=== PATIENT | female | born 1960 | race Caucasian/White ===

== ENCOUNTER → 2016-05-17 | Outpatient (CLI) | payer BC ==
[~2016-05-17] MED LIST: ACET-1256 PO; B-COCAP2 PO; BND25 PO; CMD5 PO; CYCL-259 PO; EPP3 IM; IBUP-103 PO; MULT-506 PO; MXRAIN INH; OXYC-81 PO; OXYIR PO; PRED50TA PO; TRAM-10 PO
== END | disposition home or self-care (01) ==
LOC: C.PAPS 13:49
PROVIDERS: ATTEND Obstetrics & Gynecology
DX: Z01.419 Encounter for gynecological examination (general) (routine) without abnormal findings (principal); R87.610 Atypical squamous cells of undetermined significance on cytologic smear of cervix (ASC-US)

== ENCOUNTER → 2016-11-23 | Outpatient (CLI) | payer BC ==
--- NOTE | 2016-11-23 14:13 | MAMMOGRAPHY REPORT ---
BILATERAL DIGITAL SCREENING MAMMOGRAM TOMOSYNTHESIS WITH CAD: 11/23/2016 CLINICAL HISTORY: Routine screening. TECHNIQUE: Breast tomosynthesis in addition to standard 2D mammography was performed. Current study was also evaluated with a Computer Aided Detection (CAD) system. COMPARISON: Comparison is made to exams dated: 09/28/2015 mammogram, 07/13/2014 mammogram, 05/07/2012 ma mmogram, 01/30/2011 mammogram - [facility], 05/28/2008, and 06/24/2006. BREAST COMPOSITION: There are scattered areas of fibroglandular density in both breasts. FINDINGS: No suspicious masses, calcifications, or areas of architectural distortion are noted in ei ther breast. There has been no significant interval change compared to prior exams. Left breast nodu larity is stable compared to prior exams. IMPRESSION: ACR BI-RADS CATEGORY 2: BENIGN There is no mammographic evidence of malignancy. A 1 year screening mammogram is recommended. The pa tient will receive written notification of the results. Approximately 10% of breast cancers are not detected with mammography. A negative mammographic report should not delay biopsy if a clinically suggestive mass is present. Jcakie Anne M.D. ah/:11/23/2016 12:34:21 Center Lead Consultant: Jamison VEGAS(R)(M), [facility] letter sent: Normal 1/2 BI-RADS Code: ACR BI-RADS Category 2: Benign
== END | disposition home or self-care (01) ==
LOC: C.MAMM 10:16
PROVIDERS: ATTEND Obstetrics & Gynecology
DX: Z12.31 Encounter for screening mammogram for malignant neoplasm of breast (principal)

== ENCOUNTER → 2017-03-25 | Outpatient (CLI) | payer OTHER | END | disposition home or self-care (01) | LOC: C.LABSPEC 17:58 | PROVIDERS: ATTEND Obstetrics & Gynecology | DX: N76.0 Acute vaginitis (principal) ==

== ENCOUNTER → 2017-04-01 | Outpatient (CLI) | payer OTHER | END | disposition home or self-care (01) | LOC: C.PAPS 16:16 | PROVIDERS: ATTEND Obstetrics & Gynecology | DX: Z12.4 Encounter for screening for malignant neoplasm of cervix (principal) ==

== ENCOUNTER 2022-11-26 07:45 | Observation (INO) ==
--- NOTE | 2022-10-30 15:44 | PAT Medication Instructions ---
Medication Instructions Date of Service October 30, 2022 Home Medications Medication Instructions Recorded mupirocin 2 % topical ointment 1 applic topical TID #22 grams 07/20/21 triamcinolone acetonide 0.1 % 1 applic topical DAILY #30 grams 07/20/21 topical cream apixaban 5 mg tablet (Eliquis) 5 mg PO BID mupirocin 2 % topical ointment 1 applic topical TID triamcinolone acetonide 0.1 % topical cream 1 applic topical DAILY albuterol sulfate 2.5 mg/3 mL (0.083 %) solution for nebulization 2.5 mg inhalation QID PRN albuterol sulfate 90 mcg/actuation aerosol inhaler 2 puff inhalation QID PRN multivitamin 1 tab PO QAM pseudoephedrine HCl 30 mg tablet (Sudafed) 5 mg PO HS PRN ASK your prescriber and surgeon apixaban 5 mg tablet (Eliquis) 5 mg PO BID(in order for spinal or epidural anesthesia, Eliquis needs to be stopped 72 hours/3 days before surgery. Please check if okay with doctor that prescribes this to you) STOP taking 24 hours before surgery mupirocin 2 % topical ointment 1 applic topical TID triamcinolone acetonide 0.1 % topical cream 1 applic topical DAILY DO NOT take the morning of surgery multivitamin 1 tab PO QAM Take morning of surgery With a small sip of water, OTHERWISE NOTHING TO EAT OR DRINK AFTER MIDNIGHT: albuterol sulfate 2.5 mg/3 mL (0.083 %) solution for nebulization 2.5 mg inhalation QID PRN(if needed) albuterol sulfate 90 mcg/actuation aerosol inhaler 2 puff inhalation QID PRN(if needed) Take evening before surgery albuterol sulfate 2.5 mg/3 mL (0.083 %) solution for nebulization 2.5 mg inhalation QID PRN(if needed) albuterol sulfate 90 mcg/actuation aerosol inhaler 2 puff inhalation QID PRN(if needed) pseudoephedrine HCl 30 mg tablet (Sudafed) 5 mg PO HS PRN(if needed) Other Notes If you have any questions please call us at [phone] or [phone] or [phone] or [phone]
--- NOTE | 2022-11-01 14:44 | Anesthesiology Consultation ---
Date of Service November 01, 2022 Assessment & Plan (1) Encounter for pre-operative examination: - Infectious disease screening: Per assessment on 11/01: No known infectious disease contacts or current infectious disease symptoms. No noted Covid positive test result in past 90 days. - Outpatient joint assessment: Pt currently scheduled for inpatient pathway. If surgeon requests review for outpatient joint pathway, patient is not recommended candidate for outpatient joint program from anesthesia standpoint. - Eliquis instructions: patient made aware that in order for spinal anesthesia, Eliquis needs to be held 72 hours prior to surgery. Patient voiced understanding/will check if okay with prescriber. - Neuraxial anesthesia concern: Per patient, epidural used during 1999 c/s without issue. Subsequently had D&C for miscarriage where she states she was told that she had "epidural scarring" - Patient had upcoming routine cardiology followup visit scheduled a few weeks after surgery. In light of upcoming orthopedic surgery, patient asked cardiology if she could be seen for a one year followup/preop evaluation prior to surgery. Awaiting cardiology preop evaluation appt ([facility], appt 11/13). Chart Review Chart Review: Patient seen in Pre Admission Testing Teaching & Discussion Pre-Anesthesia Teaching/Discussion Notes: Instructed NPO after midnight before surgery,except medications with 15 cc of water. Medication instructions provided according to the PAT guidelines. History Surgery Operation Date: 11/26/22 07:00 Proposed Procedures p Right Total Knee Arthroplasty - Edmund Dunne, Height/Weight Height: 5 ft 5 in Weight: 120.1 kg Allergies Allergy/AdvReac Type Severity Reaction Status Date / Time Cephalosporins Allergy Intermediate Hives Verified 10/31/22 10:36 Penicillins Allergy Unknown "Family hx Verified 10/31/22 10:36 of allergy" Sutures Allergy Unknown Rejection Verified 10/31/22 10:36 of surgical sutures gabapentin Allergy Wheezing Verified 11/01/22 14:55 doxycycline AdvReac Unknown Diarrhea Verified 10/31/22 10:36 tetracycline AdvReac Unknown Diarrhea Verified 10/31/22 10:36 levofloxacin AdvReac Diarrhea Verified 11/01/22 15:42 Horse fly bites Allergy Hives, Uncoded 11/01/22 15:39 dyspnea Additional Notes: *Hx of sutures rejection/complications (Moh's procedure 2012/[facility] > Monocryl, 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 Patient states she did not have issue with sutures used for 1999/[facility]- [facility]/Vicryl) - Melodie at surgeon's office made aware of significant/complicated sutures reaction history* Medications Home Medications Medication Instructions Recorded Confirmed Last Taken apixaban 5 mg tablet (Eliquis) 5 mg PO BID 07/20/21 10/30/22 Unknown mupirocin 2 % topical ointment 1 applic topical TID #22 grams 07/20/21 10/30/22 Unknown triamcinolone acetonide 0.1 % 1 applic topical DAILY #30 grams 07/20/21 10/30/22 Unknown topical cream albuterol sulfate 2.5 mg/3 mL 2.5 mg inhalation QID PRN 10/30/22 10/30/22 Unknown (0.083 %) solution for nebulization Shortness Of Breath Or Wheezing albuterol sulfate 90 mcg/actuation 2 puff inhalation QID PRN seasonal 10/30/22 10/30/22 Unknown aerosol inhaler allergy multivitamin 1 tab PO QAM 10/30/22 10/30/22 Unknown pseudoephedrine HCl 30 mg tablet 5 mg PO HS PRN Allergic Symptoms 10/30/22 10/30/22 Unknown (Sudafed) Wheeled Walker #1 ea 11/01/22 Unknown epinephrine 0.3 mg/0.3 mL PRN Allergic Reaction 11/01/22 Unknown injection, auto-injector (EpiPen 2-Pb) Past Medical History Medical History (Updated 11/01/22 @ 15:48 by Janice Newberry) Anticardiolipin antibody positive Remotely seen by [facility], advised to f/u PRN Asthma Factor V Leiden Hx of deep venous thrombosis LLE (2007) Morbid obesity MTHFR mutation Osteoarthritis of right knee Seasonal allergies Exercise / Class Metabolic Activity III < 4 Walking/Shop/Light housework Past Surgical History Surgical History Awareness under anesthesia Awareness with cyst removal from hand + WTE History of History of facial surgery injury to face, had to be cleaned and repaired in office Hx of arthroscopy of knee right Hx of colonoscopy Hx of dilation and curettage Hx of removal of cyst left hand Hx of retained foreign body fully removed Hx retained suture removal Hx of surgical procedure gland removed Hx of tooth extraction dental implants Hx of wisdom tooth extraction Past Anesthesia History No Family Hx of Anesthesia Complications and Other (Awareness with cyst removal from hand + WTE) History of PONV No Hx of PONV and Hx of Motion Sickness Social History Smoking Status: Never smoker Do You Dip or Chew Tobacco: No Hx Alcohol Use: Yes alcohol intake frequency: holidays/special occasions only Hx Substance Use: No substance use type: does not use Review of Systems Patient denies chest pain, shortness of breath, fever, chills, cough, wheezing, palpitations. Physical Exam Vital Signs VITALS BP 131/83 P 68 TEMP 97.9 SP02 95%RA RESP 16 PHYSICAL Full cervical extension range of motion. Full TMJ range of motion. TMD 4 finger breaths Mallampati Score 3 Dentition: intact, + implants (molars) Lungs: clear throughout to auscultation Cardiac: regular rate and rhythm, no murmurs noted Spine: normal Carotid arteries: negative bruit Extremities: no LE edema Lab Results Anesthesia Preop Results Results Anesthesia Widget: WBC 9.45 K/ul (4.8-10.8) 11/01/22 Hgb 13.5 g/dl (12.0-16.0) 11/01/22 Hct 42.3 % (37.0-47.0) 11/01/22 Plt 309 K/uL (130-400) 11/01/22 Na 135 mmol/L (136-145) L 11/01/22 K 4.0 mmol/L (3.5-5.1) 11/01/22 Cl 104 mmol/L (98-107) 11/01/22 CO2 27 mmol/L (21-32) 11/01/22 BUN 16 mg/dl (6-23) 11/01/22 Creat 0.72 mg/dl (0.6-1.2) 11/01/22 Glucose Level 100 mg/dl (70-99(Fasting)) H 11/01/22 PT 10.3 Seconds (9.0-12.0) 11/01/22 PTT 29.0 Seconds (21.0-31.0) 11/01/22 INR 0.9 (0.9-1.1) 11/01/22 Blood Type A Positive 11/01/22 Antibody Screen NEGATIVE 11/01/22 Testing Electrocardiogram Date: 11/29/21 Findings: + NSR @ (70) Chest X-Ray Date: 11/01/22 FINDINGS: Slightly rotated study. Small linear scarlike densities within the l ingula. Otherwise, the lungs are clear. The cardiac silhouette is top normal in size. No pleural effusions. No pneumothorax. IMPRESSION: No acute process. Stress Test Date: 05/09/16 Type: exercise Stress echo negative inducible ischemia. Average exercise tolerance. 96%MPHR. 7.1 METS. At rest, normal LV chamber size with mild cLVH. Normal LV systolic function without RWMA. EF 60-65%. Grade I DD. No significant valvular disease.
--- NOTE | 2022-11-22 08:10 | History & Physical Report ---
Date of Service November 22, 2022 Assessment & Plan (1) Osteoarthritis of right knee: We will proceed with a right total knee arthroplasty. Postoperatively she will be started on Eliquis and kept overnight in the hospital for postop medical management. She plans to use energy physical therapy upon discharge. History of Present Illness Chief Complaint: Osteoarthritis of the right knee. Primary Care Provider: Sebastián Delgado MD Beth is a pleasant 62-year-old female who has been dealing with chronicincreasing bilateral knee pain right worse than left. X-rays and clinical examination have been diagnostic for advanced osteoarthritis of both knees. She ambulates with a cane because of her knee pain. She has had a single injection of her knee in the past, which gave her minimal relief. She does have a history of factor V Leiden and MTHFR. Her dissolver operator feels it would be safe to proceed with knee replacement as long as she remains on her Eliquis postoperatively. She would like to proceed with a total knee arthroplasty. Allergies Allergy/AdvReac Type Severity Reaction Status Date / Time Cephalosporins Allergy Intermediate Hives Verified 10/31/22 10:36 Penicillins Allergy Unknown "Family hx Verified 10/31/22 10:36 of allergy" Sutures Allergy Unknown Rejection Verified 10/31/22 10:36 of surgical sutures gabapentin Allergy Wheezing Verified 11/01/22 14:55 doxycycline AdvReac Unknown Diarrhea Verified 10/31/22 10:36 tetracycline AdvReac Unknown Diarrhea Verified 10/31/22 10:36 levofloxacin AdvReac Diarrhea Verified 11/01/22 15:42 Horse fly bites Allergy Hives, Uncoded 11/01/22 15:39 dyspnea Home Medications Medication Instructions Recorded Confirmed Type apixaban 5 mg tablet (Eliquis) 5 mg PO BID 07/20/21 10/30/22 History mupirocin 2 % topical ointment 1 applic topical TID #22 grams 07/20/21 10/30/22 Rx triamcinolone acetonide 0.1 % 1 applic topical DAILY #30 grams 07/20/21 10/30/22 Rx topical cream albuterol sulfate 2.5 mg/3 mL 2.5 mg inhalation QID PRN 10/30/22 10/30/22 History (0.083 %) solution for nebulization Shortness Of Breath Or Wheezing albuterol sulfate 90 mcg/actuation 2 puff inhalation QID PRN seasonal 10/30/22 10/30/22 History aerosol inhaler allergy multivitamin 1 tab PO QAM 10/30/22 10/30/22 History pseudoephedrine HCl 30 mg tablet 5 mg PO HS PRN Allergic Symptoms 10/30/22 10/30/22 History (Sudafed) Wheeled Walker #1 ea 11/01/22 Rx epinephrine 0.3 mg/0.3 mL PRN Allergic Reaction 11/01/22 History injection, auto-injector (EpiPen 2-Pb) Past Med/Surg History Medical History Anticardiolipin antibody positive Remotely seen by [facility], advised to f/u PRN Asthma Factor V Leiden Hx of deep venous thrombosis LLE (2007) Morbid obesity MTHFR mutation Osteoarthritis of right knee Seasonal allergies Surgical History Awareness under anesthesia Awareness with cyst removal from hand + WTE History of History of facial surgery injury to face, had to be cleaned and repaired in office Hx of arthroscopy of knee right Hx of colonoscopy Hx of dilation and curettage Hx of removal of cyst left hand Hx of retained foreign body fully removed Hx retained suture removal Hx of surgical procedure gland removed Hx of tooth extraction dental implants Hx of wisdom tooth extraction Social History Smoking Status: Never smoker Second Hand Exposure: No; Do You Dip or Chew Tobacco: No; Hx Alcohol Use: Yes Hx Substance Use: No Preferred Language: Lao Communication Ability: Effective Financial Services Internship Required: No Beliefs That Will Affect Care: None Current Living Situation: Spouse Feels Safe at Home: Yes Assistive Devices: Cane, Glasses and Nebulizer Review of Systems All systems reviewed & are unremarkable except as noted in HPI & below. Physical Exam On physical examination of the right knee, she has range of motion from 5 to 115 degrees. No gross instability. Tenderness palpation of the distal femoral condyles.. Constitutional WD/WN, vitals as above Eyes PERRL, conjunctivae normal, anicteric sclerae ENMT external ear and nose normal, oropharynx normal Neck trachea midline, no thyromegaly Respiratory normal respiratory effort, lungs clear to auscultation Cardiovascular RRR, no murmur, no edema Gastrointestinal (Abdomen) normal bowel sounds, soft, nontender, no hepatosplenomegaly Skin no rashes, warm and dry Psychiatric A+Ox3, euthymic affect Results & Data Results & Data Laboratory Results . Diagnostic Findings X-rays of the right knee show advanced osteoarthritis with joint space narrowing, osteophyte formation, and [id number] articulation.. PG Care Time/CCT Total # of Minutes Spent Total Time Spent with Patient: Total time spent is greater than 50% in coordination of care (as documented) at patient's floor/unit and/or counseling patient: Coding Level of Care Code None Diagnoses Osteoarthritis of right knee M17.11
[~2022-11-26 07:45] MED LIST changes: -ACET-1256 PO; +ACETAMINOPHEN 500 MG TAB PO SCH; +ALLERGY Noted to ORDERED Medication SCH; -B-COCAP2 PO; -BND25 PO; +BUPIVACAINE 0.5 % 5 MG/1 ML PF 10ML VIAL ONE; -CMD5 PO; -CYCL-259 PO; -EPP3 IM; +FAMOTIDINE 20 MG TAB PO SCH; +GABAPENTIN 600 MG DOSE PO SCH; -IBUP-103 PO; +LR 15ML/HR IV SCH; +LR 60ML/HR IV SCH; +MIDAZOLAM HCL 1 MG/ML 2ML VIAL ONE; -MULT-506 PO; -MXRAIN INH; +ONDANSETRON INJ 2 MG/ML 2 ML VIAL ONE; +ORTHO JOINT MIX INFIL SCH; -OXYC-81 PO; -OXYIR PO; -PRED50TA PO; +PROPOFOL IV EMULSION 10 MG/ML 20 ML VIAL IV ONE; +ROPIVACAINE 0.5% 5 MG/ML 30 ML VIAL ONE; -TRAM-10 PO; +TRANEXAMIC ACID 1,000 MG **IV Intra-op IV SCH; +TRANEXAMIC ACID 1,000 MG **IV Pre-op IV SCH; +dexAMETHasone 4 MG TAB PO SCH; +fentaNYL citrate PF 100 MCG/2 ML VIAL ONE
--- NOTE | 2022-11-26 08:08 | History & Physical Bridge Note ---
Date of Service November 26, 2022 History & Physical Bridge Note I have examined the patient, reviewed the History & Physical and in the interval since the performance of the History & Physical I have noted the following changes of clinical significance: no changes noted
[2022-11-26] MEDS: ALLERGY Noted to ORDERED Medication SCH (08:27)
[2022-11-26] MEDS ORDERED: Nursing to Pharmacy Communication SCH (08:30)
[2022-11-26] MEDS ORDERED: ONDANSETRON INJ 2 MG/ML 2 ML VIAL IV PRN ×2 (08:32→13:33)
[2022-11-26] MEDS ORDERED: ATROPINE SULFATE 0.1 MG/ML 10ML SYR IV PRN (08:32)
[2022-11-26] MEDS ORDERED: fentaNYL citrate PF 100 MCG/2 ML VIAL IV PRN (08:32)
[2022-11-26] MEDS ORDERED: ePHEDrine sulfate 50 MG/ML AMP IV PRN (08:32)
[2022-11-26] MEDS ORDERED: ORTHO JOINT ANESTHETIC ONE (08:38)
[2022-11-26] MEDS ORDERED: PHENYLEPHRINE HCL 10 MG/ML VIAL ONE (09:46)
[2022-11-26] MEDS ORDERED: PROPOFOL IV EMULSION 10 MG/ML 20 ML VIAL IV ONE ×2 (10:11→10:34)
--- NOTE | 2022-11-26 10:44 | Operative Report ---
PG Post Operative Report Pre & Post Diagnosis Operation Date: 11/26/22 09:05 Pre-Op Diagnosis: Right Knee Degenerative Joint Disease Post-Op Diagnosis: Right Knee Degenerative Joint Disease I identified the patient and participated in the time-out.: Yes Procedure Operation Date: 11/26/22 09:05 Actual Procedures p Right Total Knee Arthroplasty(Right) - Edmund Dunne DO Surgeon Edmund Dunne DO Paint Preparer Edmund Bullard PA-C Estimated Blood Loss 30 Findings Consistent with Post-Op Diagnosis Specimens Right femoral and tibial bone Description of Procedure Implants used: I used a Filomena Persona total knee arthroplasty system with a size 9 narrow PS femur, E tibia, 28 oval patella, and a size 10 CPS polyethylene bearing. All components were cemented in place with Biomet cement. Beth arrived [facility] for the above procedure. She was seen in the preoperative holding area and the operative extremity was identified and signed. She was given a preoperative antibiotic, TXA, a spinal anesthetic and an adductor nerve block. She was taken back to the operating room and laid on the table in supine position. She was given basic sedation. The operative knee was then prepped and draped in sterile fashion. A timeout was done, and the patient and the operative extremity was properly identified. A midline incision was made directly over the patella. Dissection was taken down to the extensor mechanism. A midvastus arthrotomy was used. The medial retinaculum was released and the fat pad was mostly excised. The knee was flexed and the ACL, PCL, and meniscus were removed. A drill was sent down the center of the femoral canal followed by an intramedullary bhargav. Off that bhargav a distal femoral cutting block was placed. 9 mm was resected off the distal femur at 5 of valgus. A posterior referencing AP sizing guide was then placed on the distal femur. The femur measured to be a size 9. 2 drill holes were placed in 3 of external rotation. A 4-in-1 cutting block was then impacted into place. Anterior, posterior, and chamfer cuts were then made. The proximal tibia was then exposed. An external tibial alignment guide was placed. A tibial cut guide was then anchored in place and the proximal tibia was then resected. The posterior aspect of the knee was then opened up and any additional meniscus fragments and osteophytes were removed. The tibia measured to be a size E. The tibial plate was then placed in the appropriate rotation and the tibia was drilled and punched. Trial components were then placed. I used a size 10 CPS polyethylene insert. The knee was brought through a full range of motion and felt to be stable. The peg holes for the femoral component were then drilled. The patella was then everted and 9 mm was resected off the posterior aspect of the patella. The patella measured to be a size 28 oval. 3 peg holes were then drilled. A trial patella was placed. The knee was once again brought through a full range of motion and felt to be stable. Trial components were then removed. The surrounding soft tissues were injected with 100 cc of an orthopedic pain control cocktail. All components were then cemented into place with Biomet cement. The final polyethylene insert was then snapped into place. Once cement was dry the tourniquet was deflated. Hemostasis was obtained. A dilute betadyne lavage was then done for 3 minutes. The joint was then irrigated with normal saline solution. The midvastus arthrotomy was then closed with #1 Vicryl suture. The skin was closed with 2-0 Vicryl, 3-0V lock suture, and angel luis. A soft compressive dressing was placed. She was then transferred to a hospital bed and taken to the postanesthesia care unit in stable condition. She tolerated the procedure well. Edmund Bullard PA-C, was present for the entire procedure. He was critical for patient positioning, prepping, draping, retraction exposure, wound closure and application of sterile dressing. I attest to the content of the Intraoperative Record and any orders documented therein. Any exceptions are noted below.
--- NOTE | 2022-11-26 12:35 | XRay Report ---
XR knee RT 1 or 2V routine CLINICAL HISTORY: Surgical Post Op TECHNIQUE: 2 views of the right knee were obtained. Comparison: Comparison is made to right knee MRI 02/19/2008 FINDINGS: Patient is status post total knee arthroplasty with expected postsurgical changes including soft tiss ue swelling and subcutaneous emphysema. No periarticular lucency or hardware fracture is seen. IMPRESSION: Expected postoperative appearance status post placement of total knee arthroplasty. ACT 112: Negative or not required by law. Electronically signed by: Tad Solares M.D. 11/26/2022 12:33 PM
--- NOTE | 2022-11-26 12:35 | Anesthesiology Progress Note ---
Date of Service November 26, 2022 Anesthesia Post Procedure Vital Signs Vital Signs: Temp Pulse Pulse Resp BP Pulse Ox O2 Del Method 11/26/22 12:25 97.5 F L 64 18 130/62 95 Room Air 11/26/22 12:15 63 13 132/51 L 94 Room Air 11/26/22 12:05 66 15 140/65 94 Room Air 11/26/22 11:55 61 18 116/65 97 Room Air 11/26/22 11:45 59 L 15 132/62 99 Oxymask 11/26/22 11:25 61 17 127/62 99 Oxymask 11/26/22 11:35 62 15 134/63 97 Oxymask 11/26/22 11:15 65 17 123/64 98 Oxymask 11/26/22 11:06 97.5 F L 74 13 121/59 L 95 Oxymask 11/26/22 08:04 Room Air 11/26/22 08:04 97.9 F 76 20 170/92 H 95 Room Air O2 Flow Rate 11/26/22 12:25 11/26/22 12:15 11/26/22 12:05 11/26/22 11:55 11/26/22 11:45 2 11/26/22 11:25 3 11/26/22 11:35 3 11/26/22 11:15 3 11/26/22 11:06 5 11/26/22 08:04 11/26/22 08:04 Pain Intensity Right Knee: Pain Intensity: 0 Transfer of Care Handoff Completed per policy Notes Mental Status: alert / awake / arousable and participated in evaluation Patient Amnestic to Procedure: Yes Nausea / Vomiting: adequately controlled Pain: adequately controlled Airway Patency, RR, SpO2: stable & adequate BP & HR: stable & adequate Hydration State: stable & adequate Neuraxial Anesthesia: was administered and sensory block is resolving Anesthetic Complications: no major complications apparent and Pt Satisfied with anesthetic care
[2022-11-26] MEDS ORDERED: ALBUTEROL 0.083% NEBU SOLN 3 ML VIAL INH PRN (13:33)
[2022-11-26] MEDS ORDERED: MAGNESIUM HYDROXIDE SUSP 30 ML UDC PO PRN (13:33)
[2022-11-26] MEDS ORDERED: METOCLOPRAMIDE HCL INJ 5 MG/ML 2 ML VIAL IV PRN (13:33)
[2022-11-26] MEDS ORDERED: ALBUTEROL HFA 8 GM INHALER INH PRN (13:33)
[2022-11-26] MEDS ORDERED: bisacodyL 10 MG SUPP PR PRN (13:33)
[2022-11-26] MEDS ORDERED: HYDROmorphone INJ 0.5 MG/0.5 ML SYR IV PRN (13:33)
[2022-11-26] MEDS ORDERED: NALOXONE HCL 0.4 MG/1 ML VIAL/CARP IV PRN (13:33)
[2022-11-26] MEDS: SODIUM CHLORIDE 0.9% 1,000 ML IV SCH (14:50)
[2022-11-26] MEDS: KETOROLAC 30 MG/ML VIAL IV SCH ×2 (14:51→19:43)
[2022-11-26] MEDS: ACETAMINOPHEN 500 MG TAB PO SCH ×2 (14:51→22:43)
[2022-11-26] MEDS: MUPIROCIN 2% OINT 22 GM TUBE TOP SCH ×2 (14:52→22:42)
[2022-11-26] MEDS: oxyCODONE HCL IR 5 MG TAB (IMMEDIATE RELEASE) PO PRN ×3 (16:04→23:36)
[2022-11-26] MEDS: ceFAZolin 2000MG 2,000 MG/15 ML SYR IV SCH ×2 (18:30→20:05)
[2022-11-26] MEDS ORDERED: SENNA 8.6 MG TAB PO SCH (21:00)
[2022-11-26] MEDS: DOCUSATE SODIUM 100 MG CAP PO SCH (22:42)
[2022-11-27] MEDS: ALLERGY Noted to ORDERED Medication SCH ×2 (00:09→07:56)
[2022-11-27] MEDS ORDERED: Nursing to Pharmacy Communication SCH ×3 (00:15)
[2022-11-27] MEDS: SODIUM CHLORIDE 0.9% 1,000 ML IV SCH (00:16)
[2022-11-27] MEDS: KETOROLAC 30 MG/ML VIAL IV SCH ×2 (01:47→06:45)
[2022-11-27] MEDS: ceFAZolin 2000MG 2,000 MG/15 ML SYR IV SCH (03:18)
[2022-11-27] MEDS: oxyCODONE HCL IR 5 MG TAB (IMMEDIATE RELEASE) PO PRN ×2 (03:18→07:35)
--- NOTE | 2022-11-27 07:13 | Orthopedic Progress Note ---
Date of Service November 27, 2022 Assessment & Plan (1) Status post right knee replacement: Overall she is doing very well. She is not having much pain in the right knee. She will be seen by physical therapy today for ambulation and range of motion exercises. She is on Eliquis for DVT prophylaxis. The nursing staff can change her dressing after physical therapy. She can be discharged home later today. She will follow-up orthopedics in 2 weeks. Anjana Campos was seen and examined at bedside this morning. Overall she is doing very well. She is not having much pain in the right knee. She has been up and ambulating to the bathroom. She has no complaints.. Review of Systems All systems reviewed & are unremarkable except as noted in HPI & below. Physical Exam On physical examination of the right knee, the dressing is clean and dry. Her leg is out full extension. She has active dorsiflexion plantarflexion of her right ankle.. Results & Data Results & Data Laboratory Results . Diagnostic Findings Postoperative x-rays of the right knee show the prosthesis to be in anatomic alignment without any evidence of fracture complication, or loosening.. PG Care Time/CCT Total # of Minutes Spent Total Time Spent with Patient: Total time spent is greater than 50% in coordination of care (as documented) at patient's floor/unit and/or counseling patient: Coding Level of Care Code 52129 Post Operative Follow-Up Diagnoses Status post right knee replacement Z96.651
--- NOTE | 2022-11-27 07:14 | Discharge Summary ---
Date of Service November 27, 2022 Admission HPI (Per Admitting) Beth is a pleasant 62-year-old female who has been dealing with chronicincreasing bilateral knee pain right worse than left. X-rays and clinical examination have been diagnostic for advanced osteoarthritis of both knees. She ambulates with a cane because of her knee pain. She has had a single injection of her knee in the past, which gave her minimal relief. She does have a history of factor V Leiden and MTHFR. 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 She would like to proceed with a total knee arthroplasty. Admission Exam (Per Admitting) On physical examination of the right knee, she has range of motion from 5 to 115 degrees. No gross instability. Tenderness palpation of the distal femoral condyles.. Principal Diagnosis Same as "Discharge Diagnosis" noted below under Discharge Instructions. Discharge Exam On physical examination of the right knee, the dressing is clean and dry. Her leg is out full extension. She has active dorsiflexion plantarflexion of her right ankle.. Discharge Data Procedures Performed Operation Date: 11/26/22 09:05 Actual Procedures p Right Total Knee Arthroplasty(Right) - Edmund Dunne DO Ordered Studies 11/26/22 05:00 US - OR guided needle placemen Routine Hospital Course (1) Status post right knee replacement: On November 26, 2022 Beth arrived at [facility] and underwent a right knee replacement without complication. She had a spinal anesthetic. Postoperatively she was started on Eliquis for DVT prophylaxis and transferred to the general orthopedic floors. Her hospital course was uneventful. On postop day #1, her vital signs were stable and her pain was well controlled. She was able to participate well with physical therapy doing ambulation and range of motion exercises. She was then discharged home. She will follow-up with orthopedics in 2 weeks. PG Care Time/CCT Total # of Minutes Spent Total Time Spent with Patient: Total time spent is greater than 50% in coordination of care (as documented) at patient's floor/unit and/or counseling patient: Discharge Plan Discharge Items Patient Disposition: Home - Home Health Services Reason For Visit: Right Knee Degenerative Joint Disease Discharge Diagnosis: Right knee replacement Activity: Per Instructions section Non-emergency contact: Surgeon Call non-emergency contact if: your wound has increased redness and your wound has increased drainage Follow-up/Referrals: Sebastián Delgado MD [Primary Care Provider] - Diet: Regular Addtl Attending Provider Instructions: Activity and Therapy Recommendations: * If you are using [facility] then therapy will be provided at your home until they feel you have accomplished all of your goals. * If you are using [facility] then Physical Therapy will be provided until they feel you are ready to start Outpatient Physical Therapy. * If you are not using home therapy then Outpatient Physical Therapy should start about 3-5 days from your day of surgery. Therapy will last about 6-10 weeks * It is important not to put a pillow under your knee when you are relaxing or sleeping. It is just as important to make sure you are getting your knee perfectly straight as it is to regain your knee bend. * You were shown a series of exercises in the hospital. Do these exercises three times each day including the exercises you were shown in physical therapy. * Get up and walk several times each day. For the first four weeks, try not to stand or walk for more than one hour at a time. If you do stand or walk for more than one hour, you will not hurt anything, but your leg will likely swell. * As you feel comfortable, you may change from the walker or crutches to a cane and then to independent walking. Medications: * Narcotic You will likely be sent home from the hospital with a prescription for the narcotic pain medication that worked best throughout your stay. * Eliquis -continue taking your Eliquis as prescribed. * Other medications may be prescribed for specific circumstances. If you have any questions, please call the office at . * Resume previous home medications unless otherwise instructed TEDs/Elastic Stockings: The white elastic stockings help limit swelling and prevent blood clots from forming in your legs.~ The more you wear them, the more they work. Wear them for six weeks. Dressing Care: The dressing can be changed after physical therapy on postop day #1. Daily dry dressing changes for a few days, especially if the incision is still draining some. If the incision is not draining then you may leave the angel luis open to air. If there is a little bit of drainage or if the angel luis are getting stuck on your clothing then cover the incision with a dry dressing. The angel luis will be removed at your 2 week follow-up appointment. Showering: You may shower 5 days from the day of surgery as long as the incision is no longer draining. You may shower with the angel luis exposed. Let soapy water run over the angel luis and pat them dry. Do not scrub or soak the incision. Things To Watch For: * Drainage from the incision site that occurs more than one week after your surgery. * Increased redness at the incision site. * Fever above 102 degrees Fahrenheit. * Unusual chest pain or shortness of breath. * Call [facility] at with any of the above problems Follow-Up Visit: Follow-up with Dr. Dunne's PA (Edmund Bullard) 2-3 weeks after your day of surgery. He will remove your angel luis and answer any questions. If you have any additional questions or concerns, Dr Dunne is usually in the office at the same time and will be available An appointment was probably scheduled when you signed-up for surgery in the office. If you have any questions call Office Instructions: More detailed instructions as well as Frequently Asked Questions were provided in a folder by our office when you signed-up for surgery. Please review these instructions when you get home. If you have any further questions or concerns, please feel free to call the office at [phone] Pending Studies at Discharge: No Stand-Alone Forms: [facility], Smoking Cessation Medications and DC Order Prescriptions: New oxycodone 5 mg Tablet 5 mg PO Q4H PRN (Reason: pain) Qty: 30 0RF Continued (DME) Wheeled Walker Misc See Rx Instructions .MEDSUPPLY Qty: 1 0RF Rx Instructions: As directed mupirocin 2 % ointment 1 applic topical TID Qty: 22 3RF triamcinolone acetonide 0.1 % cream 1 applic topical DAILY Qty: 30 5RF Eliquis 5 mg tablet 5 mg PO BID multivitamin Tablet 1 tab PO QAM albuterol sulfate 90 mcg/actuation HFA aerosol inhaler 2 puff INHALATION QID PRN (Reason: seasonal allergy) albuterol sulfate 2.5 mg /3 mL (0.083 %) solution for nebulization 2.5 mg inhalation QID PRN (Reason: Shortness Of Breath Or Wheezing) pseudoephedrine HCl [Sudafed] 30 mg Tablet 5 mg PO HS PRN (Reason: Allergic Symptoms) epinephrine [EpiPen 2-Pb] 0.3 mg/0.3 mL Auto-Injector PRN (Reason: Allergic Reaction) Rx Instructions: Horsefly reaction Admission Data Admit Date/Time: 11/26/22 11:12 Attending Provider: Edmund Dunne Admit Provider: Edmund Dunne Primary Care Provider: Sebastián Delgado
[2022-11-27] MEDS: ACETAMINOPHEN 500 MG TAB PO SCH (08:35)
[2022-11-27] MEDS: MUPIROCIN 2% OINT 22 GM TUBE TOP SCH (08:37)
[2022-11-27] MEDS: APIXABAN 5 MG TABLET PO SCH ×2 (08:37→08:57)
[2022-11-27] MEDS: DOCUSATE SODIUM 100 MG CAP PO SCH (08:39)
[2022-11-27] MEDS ORDERED: TRIAMCINOLONE ACET 0.1% CR 15 GM TUBE TOP SCH (09:00)
[2022-11-27] MEDS ORDERED: MULTIVITAMIN TAB PO SCH (09:00)
== END 2022-11-27 11:18 | disposition home health service (06) ==
LOC: 3N 07:45 → ASU 07:45